=== PATIENT | female | born 1930 | race Caucasian/White ===

== ENCOUNTER → 2017-05-13 | Outpatient (CLI) | payer OTHER ==
[~2017-05-13] MED LIST: BENADRYL25 MG PO; HYDROCHLOROTHIA25 M2 PO; MULTI VITAMIN1 EACH PO; PREDNISONE 20 M20 MG PO; SERTRALINE HCL50 MG PO
== END ==
LOC: RAD 03:19
DX: Z12.31 Encounter for screening mammogram for malignant neoplasm of breast (principal)

== ENCOUNTER → 2018-07-28 | Outpatient (CLI) | payer OTHER | LOC: RAD 01:37 | DX: Z12.31 Encounter for screening mammogram for malignant neoplasm of breast (principal) ==